=== PATIENT | female | born 1985 | race Caucasian/White ===

== ENCOUNTER 2021-10-08 18:06 | Emergency (ER) | payer OTHER, SELFPAY ==
[2021-10-08 18:17] VITALS: BP 126/63; PULSE 70; RESP 16; TEMP 36.7; O2SAT 97; BMI 18.6
--- NOTE | 2021-10-08 18:25 | DI.US.S_ITS ---
PROCEDURE: US OB <= 14 WEEKS FETUS INDICATIONS: CRAMPING OUTSIDE/PRIOR DATING DATA: Last menstrual period (LMP): 08/31/2021. LMP-based estimated date of delivery ([facility]): 06/07/2022. First dating scan (date and location): 10/08/2021. Estimated date of delivery ([facility]) from first dating scan: 06/05/2022. TECHNIQUE: Real-time scanning was performed of the fetus and maternal pelvic organs, with image documentation. Endovaginal scanning was also performed to better visualize the fetus and maternal ovaries. COMPARISON: None. FINDINGS: Single intrauterine gestational sac is identified in the endometrial cavity without internal contents. No yolk sac or pole. No cardiac motion identified. A gestational sac is slightly irregular, but the main sac diameter of 1.1 cm would correspond with a 5 week 5 day gestation. No evidence of subchorionic bleed. Corpus luteum 2.5 x 1.9 cm cyst noted in the right ovary. Left ovary not visualized. No adnexal mass. IMPRESSION: 1. Intrauterine gestational sac without internal contents. Differential possibilities include normal early , anembryonic , missed and less likely pseudo sac with nonvisualized ectopic . Consider short-term interval follow-up evaluation. Approved by: Robel Meza M.D. on 10/08/2021 at 18:38
[2021-10-08 18:58] LABS: Add Manual Diff / Slide Review NO; Basophils Absolute Auto 0 /uL (0-100); Basophils Percent Auto 0.4 % (0-2); Eosinophils Absolute Auto 200 /uL (0-450); Eosinophils Percent Auto 2.5 % (2-4); Hematocrit 36.6 % (36-46); Hemoglobin 12.3 g/dL (12.0-16.0); Lymphocytes Absolute Auto 1200 /uL (1100-4500); Lymphocytes Percent Auto 18.9 % (25-40); Mean Corpuscular HGB Conc 33.5 % (30-36); Mean Corpuscular Hemoglobin 30.4 PG (26-34); Mean Corpuscular Volume 90.6 fL (80-100); Monocytes Absolute Auto 500 /uL (0-900); Monocytes Percent Auto 7.9 % (3-14); Neutrophils Absolute Auto 4400 /uL (1500-7000); Neutrophils Percent Auto 70.3 % (50-75); Platelet Count 211 X10^3/uL (150-400); Red Blood Cell Count 4.04 X10^6/uL (4.0-5.2); Red Cell Distribution Width 12.1 % (11.6-14.8); White Blood Cell Count 6.3 X10^3/uL (4.5-11.0)
[2021-10-08 19:16] LABS: Alanine Aminotransferase 17 IU/L (<35); Albumin 4.7 g/dL (3.5-5.0); Albumin Globulin Ratio 1.7 (1.0-2.8); Alkaline Phosphatase 40 U/L (38-126); Aspartate Aminotransferase 26 IU/L (14-36); BUN Creatinine Ratio 18.3 (6-22); Bilirubin Total 0.2 mg/dL (0.2-1.3); Blood Urea Nitrogen 11 mg/dL (7-17); Calcium 9.7 mg/dL (8.4-10.2); Carbon Dioxide 23 mmol/L (22-32); Chloride 103 mmol/L (98-107); Estimated Glomerular Filt Rate > 60.0 mL/min (>60); Globulin 2.7 g/dL (1.7-4.1); Glucose 105 mg/dL (70-100); HEMOLYSIS < 15 (0-50); Potassium 4.4 mmol/L (3.4-5.1); Sodium 136 mmol/L (137-145); Total Protein 7.4 g/dL (6.3-8.2)
[2021-10-08 19:57] LABS: HCG Quantitative /Beta subunit 15768 mIU/mL
--- NOTE | 2021-10-08 22:05 | ED.GENADULT ---
HPI - General Adult General Chief complaint: OB/Uterine Contractions Stated complaint: 6Wks Preg, Cramps on Rt Side Time Seen by Provider: 10/08/21 21:49 Mode of arrival: Ambulatory History of Present Illness HPI narrative: 35-year-old at 5 and half weeks planned over the last 48 hours has been having increasing sharp stabbing pain in the right lower quadrant with the right side a bit crampy. Today she was feeling better. [place] on [place] and came in for further evaluation. She reports no fevers, cough, chills, vomiting, diarrhea, headaches, palpitations or chest pain. She is not having any vaginal discharge and no vaginal bleeding Related Data Allergies Allergy/AdvReac Type Severity Reaction Status Date / Time No Known Drug Allergies Allergy Verified 10/08/21 18:28 Review of Systems Review of Systems Narrative: Remainder of complete review of systems is otherwise unremarkable except for that included in the HPI. Patient History Substance Use Type: does not use Exam Narrative Exam Narrative: General: Healthy appearing, in no acute distress. Able to give a complete and coherent history. Well-nourished well-developed HEENT: Moist mucous membranes, normal sclera with reactive pupils, Respiratory: Lungs are clear to auscultation, no wheezing no rales no rhonchi. Full and symmetrical air movement Cardiac: Regular rate and rhythm no murmurs no bruits Abdomen: Soft, nontend abdomen, mild right adnexal tenderness. There is no rebound or guarding. Bowel tones, no flank pain Skin: Warm and dry, no rashes Neurologic: Grossly neurologically intact with no obvious asymmetries or abnormalities Extremities: No trauma, well perfused Psych: Cooperative, appropriate insight and affect Initial Vital Signs Initial Vital Signs: Vital Signs Temperature 98.0 F 10/08/21 18:17 Pulse Rate 70 10/08/21 18:17 Respiratory Rate 16 10/08/21 18:17 Blood Pressure 126/63 10/08/21 18:17 Pulse Oximetry 97 10/08/21 18:17 Course Orders Ordered: ED Orders 10/08/21 18:25 OB <= 14 weeks fetus Stat 10/08/21 18:42 ABO RH Type Stat Complete Blood Count AUTO DIFF Stat Comprehensive Metabolic Panel Stat HCG Quantitative /Beta subunit Stat Vital Signs Vital signs: Vital Signs - 8 hr 10/08/21 18:17 10/08/21 22:34 Temperature 98.0 F Pulse Rate 70 73 Respiratory Rate 16 Blood Pressure 126/63 108/61 Pulse Oximetry 97 100 Medical Decision Making Lab Data Lab results narrative: HCG 15,768 1 -10 WEEKS 44 -256,740 11 -15 WEEKS 11,556 -265,380 Result diagrams: 10/08/21 18:42 10/08/21 18:42 Labs: Lab Results 10/08/21 10/08/21 10/08/21 Range/Units 18:42 18:42 18:42 WBC 6.3 (4.5-11.0) X10^3/uL RBC 4.04 (4.0-5.2) X10^6/uL Hgb 12.3 (12.0-16.0) g/dL Hct 36.6 (36-46) % MCV 90.6 (80-100) fL MCH 30.4 (26-34) PG MCHC 33.5 (30-36) % RDW 12.1 (11.6-14.8) % Plt Count 211 (150-400) X10^3/uL Neut % (Auto) 70.3 (50-75) % Lymph % (Auto) 18.9 L (25-40) % [place] % (Auto) 7.9 (3-14) % Eos % (Auto) 2.5 (2-4) % Baso % (Auto) 0.4 (0-2) % Neut # (Auto) 4400 (3692-3585) /uL Lymph # (Auto) 1200 (3900-5130) /uL [place] # (Auto) 500 (0-900) /uL Eos # (Auto) 200 (0-450) /uL Baso # (Auto) 0 (0-100) /uL Sodium 136 L (137-145) mmol/L Potassium 4.4 (3.4-5.1) mmol/L Chloride 103 (98-107) mmol/L Carbon Dioxide 23 (22-32) mmol/L BUN 11 (7-17) mg/dL Creatinine 0.60 (0.52-1.04) mg/dL Estimated GFR > 60.0 (>60) mL/min BUN/Creatinine Ratio 18.3 (6-22) Glucose 105 H (70-100) mg/dL Calcium 9.7 (8.4-10.2) mg/dL Total Bilirubin 0.2 (0.2-1.3) mg/dL AST 26 (14-36) IU/L ALT 17 (<35) IU/L Alkaline Phosphatase 40 (38-126) U/L Total Protein 7.4 (6.3-8.2) g/dL Albumin 4.7 (3.5-5.0) g/dL Globulin 2.7 (1.7-4.1) g/dL Albumin/Globulin Ratio 1.7 (1.0-2.8) HCG, Quant 21251 mIU/mL Blood Type A Positive Point of Care Testing Test Results Positive Urine Dip Bedside Urine Glucose Negative Bedside Urine Bilirubin - Negative Bedside Urine Ketone - Negative Urine Specific [place] 1.010 Bedside Urine Occult Blood - Negative Bedside Urine pH 7.5 Bedside Urine Protein - Negative Bedside Urine Urobilinogen - Negative Bedside Urine Nitrite - Negative Bedside Urine Leukocytes - Negative Esterase Point of care testing: Point of Care Testing Test Results Positive Urine Dip Bedside Urine Glucose Negative Bedside Urine Bilirubin - Negative Bedside Urine Ketone - Negative Urine Specific [place] 1.010 Bedside Urine Occult Blood - Negative Bedside Urine pH 7.5 Bedside Urine Protein - Negative Bedside Urine Urobilinogen - Negative Bedside Urine Nitrite - Negative Bedside Urine Leukocytes - Negative Esterase Imaging Data us pelvis: Radiologist's Impression: TECHNIQUE:? Real-time scanning was performed of the fetus and maternal pelvic organs, with image documentation.? Endovaginal scanning was also performed to better visualize the fetus and maternal ovaries.? ? COMPARISON:? None. ? FINDINGS:? ? Single intrauterine gestational sac is identified in the endometrial cavity without internal contents.? No yolk sac or pole.? No cardiac motion identified.? A gestational sac is slightly irregular, but the main sac diameter of 1.1 cm would correspond with a 5 week 5 day gestation.? No evidence of subchorionic bleed. ? Corpus luteum 2.5 x 1.9 cm cyst noted in the right ovary.? Left ovary not visualized.? No adnexal mass. ? IMPRESSION: ? 1. Intrauterine gestational sac without internal contents.? Differential possibilities include normal early , anembryonic , missed and less likely pseudo sac with nonvisualized ectopic .? Consider short-term interval follow-up evaluation. ? ? ? Approved by: Robel Meza M.D. on 10/08/2021 at 18:38? MDM Narrative Medical decision making narrative: 35-year-old at 5 weeks 5 days by LMP with an anticipated . Right-sided adnexal pain with sharp stabbing pain no associated bleeding or vaginal discharge. No fevers. Ultrasound shows no pole with sac appreciated in the a uterus. No obvious adnexal masses. However hCG is significantly more elevated than and 1 would expect at 5 weeks 5 days. Concerned that this may be a decidual reaction she may have an ectopic that we have not been able to clearly see. Reviewed all of these findings with her. Will have her follow-up with OBGYN on Monday. Clearly reviewed findings, reasons to return as well as expectations. Questions answered she is safe for home discharge Discharge Plan Departure Patient Disposition: Home Clinical Impression: Early stage of , Pelvic pain Instructions: DI for Miscarriage Activity Restrictions/Additional Instructions: Thank you for coming in today With the initial evaluation I am not seeing any obvious evidence for an ectopic . Your hormone is fairly elevated, closer to tender 11 weeks of than 5. Your ultrasound suggests 5 and half week gestational sac that is forming in your uterus however we do not yet see pole, the actual baby itself. At this time, all of those data points are not adding up the way that they should and it leaves is within inconclusive answer. There is no life-threatening finding tonight and it is safe to go home however you will need to follow-up. On Monday morning please call [facility] at [phone] Allen who is the OBGYN who will be on-call on Monday. She will help you decide if you need blood work and a repeat ultrasound or just blood work. In the meantime, if you have worsening pain developed vaginal bleeding or new symptoms please feel free to return to the ER I wish you the very best Your blood type is A positive
[2021-10-08 22:34] VITALS: BP 108/61; PULSE 73; O2SAT 100
== END 2021-10-08 22:36 | disposition home or self-care (01) ==
PROVIDERS: Emergency Provider Emergency Medicine
DX: O26.891 Other specified pregnancy related conditions, first trimester (principal); R10.2 Pelvic and perineal pain; Z3A.01 Less than 8 weeks gestation of pregnancy
CPT/HCPCS: 36415; 76801; 76817; 80053; 81003; 81025; 84702; 85025; 86900; 86901; 99284

== ENCOUNTER → 2021-10-11 10:44 | Outpatient (CLI) | payer OTHER, SELFPAY ==
[2021-10-11 13:56] LABS: HCG Quantitative /Beta subunit 32359 mIU/mL
== END ==
PROVIDERS: Referring Provider Obstetrics & Gynecology; Visit Provider Obstetrics & Gynecology
DX: O26.899 Other specified pregnancy related conditions, unspecified trimester (principal); R10.9 Unspecified abdominal pain
CPT/HCPCS: 36415; 84702

== ENCOUNTER → 2022-06-04 10:58 | Outpatient (CLI) | payer OTHER, SELFPAY ==
[2022-06-04 11:31] LABS: Add Manual Diff / Slide Review NO; Basophils Absolute Auto 0 /uL (0-100); Basophils Percent Auto 1.2 % (0-2); Eosinophils Absolute Auto 200 /uL (0-450); Hematocrit 33.3 % (36-46); Hemoglobin 11.5 g/dL (12.0-16.0); Lymphocytes Absolute Auto 1000 /uL (1100-4500); Lymphocytes Percent Auto 29.9 % (25-40); Mean Corpuscular HGB Conc 34.5 % (30-36); Mean Corpuscular Hemoglobin 31.5 PG (26-34); Mean Corpuscular Volume 91.2 fL (80-100); Monocytes Absolute Auto 300 /uL (0-900); Monocytes Percent Auto 9.4 % (3-14); Neutrophils Absolute Auto 1800 /uL (1500-7000); Neutrophils Percent Auto 53.5 % (50-75); Platelet Count 165 X10^3/uL (150-400); Red Blood Cell Count 3.65 X10^6/uL (4.0-5.2); Red Cell Distribution Width 12.7 % (11.6-14.8); White Blood Cell Count 3.4 X10^3/uL (4.5-11.0)
[2022-06-04 11:37] LABS: Hemoglobin A1C% w Est Avg Glu 4.8 % (4.0-6.0)
[2022-06-04 11:52] LABS: Alanine Aminotransferase 16 IU/L (<35); Albumin 4.4 g/dL (3.5-5.0); Albumin Globulin Ratio 1.9 (1.0-2.8); Alkaline Phosphatase 40 U/L (38-126); Aspartate Aminotransferase 26 IU/L (14-36); BUN Creatinine Ratio 13.9 (6-22); Bilirubin Total 0.6 mg/dL (0.2-1.3); Blood Urea Nitrogen 10 mg/dL (7-17); Calcium 9.1 mg/dL (8.4-10.2); Carbon Dioxide 25 mmol/L (22-32); Chloride 104 mmol/L (98-107); Cholesterol 164 mg/dL (140-199); Estimated Glomerular Filt Rate > 60 mL/min (>60); Globulin 2.3 g/dL (1.7-4.1); Glucose 90 mg/dL (70-100); HDL Cholesterol 59 mg/dL (40-60); HEMOLYSIS 22 (0-50); Iron 64 ug/dL (37-170); LDL Cholesterol Calculated 97 mg/dL (<100); Potassium 4.3 mmol/L (3.4-5.1); Sodium 139 mmol/L (137-145); Total Protein 6.7 g/dL (6.3-8.2); Triglycerides 41 mg/dL (35-150)
[2022-06-04 12:01] LABS: HEMOLYSIS 128 (0-50)
[2022-06-04 12:03] LABS: Percent Iron Saturation 21 % (15-50); Total Iron Binding Capacity 298 ug/dL (265-497); Transferrin 247 mg/dL (206-381)
[2022-06-04 12:09] LABS: Prolactin 7.5 ng/mL (3.0-18.6); Vitamin D 25 Hydroxy (D3) 112 ng/mL (30.0-100.0)
[2022-06-04 12:10] LABS: Follicle Stimulating Hormone 5.45 mIU/mL; Free T3, Triiodothyronine Free 3.59 pg/mL (2.77-5.27); Free T4, Direct Thyroxine 1.27 ng/dL (0.78-2.19); Luteinizing Hormone 3.98 mIU/mL
[2022-06-04 12:24] LABS: Thyroid Stimulating Hormone 1.49 uIU/mL (0.47-4.68)
[2022-06-04 12:25] LABS: Estradiol, Total 24.3 pg/mL
[2022-06-04 12:27] LABS: Ferritin 29 ng/mL (6-137)
[2022-06-04 12:58] LABS: Folate > 20.0 ng/mL (2.76-20.0); Vitamin B12 > 1000 pg/mL (239-931)
[2022-06-05 09:34] LABS: Thyroid Peroxidase Antibodies 28 IU/mL (0-34); Triiodothyronine T3 Total 94 ng/dL (71-180)
[2022-06-07 19:31] LABS: Anti Thyroglobulin Antibody 12.3 IU/mL (0.0-0.9)
[2022-06-11 09:15] LABS: Anti Mullerian Hormone 4.13 ng/mL (.)
== END ==
DX: Z00.00 Encounter for general adult medical examination without abnormal findings (principal); N94.89 Other specified conditions associated with female genital organs and menstrual cycle; N92.6 Irregular menstruation, unspecified; Z13.29 Encounter for screening for other suspected endocrine disorder
CPT/HCPCS: 36415; 80053; 80061; 82306; 82397; 82607; 82670; 82728; 82746; 83001; 83002; 83036; 83090; 83540; 83550; 84146; 84439; 84443; 84480; 84481; 85025; 86376; 86800

== ENCOUNTER → 2022-06-24 15:51 | Outpatient (CLI) | payer OTHER, SELFPAY ==
[2022-06-24 17:42] LABS: Free T3, Triiodothyronine Free 3.59 pg/mL (2.77-5.27); Free T4, Direct Thyroxine 1.31 ng/dL (0.78-2.19)
[2022-06-24 18:01] LABS: Progesterone, Total 9.46 ng/mL
[2022-06-25 05:38] LABS: Thyroid Peroxidase Antibodies 28 IU/mL (0-34)
[2022-06-28 20:40] LABS: Anti Thyroglobulin Antibody 11.6 IU/mL (0.0-0.9)
[2022-06-29 20:42] LABS: Estrogen 177 pg/mL (.)
[2022-07-04 11:27] LABS: Percent Free Testosterone 0.98 % (0.50-2.80); Testosterone Free 0.12 ng/dL (0.10-0.85); Testosterone Total 12.6 ng/dL (10.0-55.0)
== END ==
PROVIDERS: Acupuncturist
DX: E06.3 Autoimmune thyroiditis (principal); N94.89 Other specified conditions associated with female genital organs and menstrual cycle; N92.6 Irregular menstruation, unspecified; Z13.29 Encounter for screening for other suspected endocrine disorder
CPT/HCPCS: 36415; 82627; 82672; 84144; 84270; 84402; 84403; 84432; 84439; 84443; 84481; 86376; 86800

== ENCOUNTER → 2022-10-21 10:51 | Outpatient (CLI) | payer OTHER, SELFPAY ==
[2022-10-21 11:55] LABS: Add Manual Diff / Slide Review NO; Basophils Absolute Auto 0 /uL (0-100); Basophils Percent Auto 0.8 % (0-2); Eosinophils Absolute Auto 100 /uL (0-450); Eosinophils Percent Auto 3.2 % (2-4); Hemoglobin 12.9 g/dL (12.0-16.0); Lymphocytes Absolute Auto 1000 /uL (1100-4500); Lymphocytes Percent Auto 24.4 % (25-40); Mean Corpuscular HGB Conc 33.8 % (30-36); Mean Corpuscular Hemoglobin 30.4 PG (26-34); Mean Corpuscular Volume 89.9 fL (80-100); Monocytes Absolute Auto 400 /uL (0-900); Monocytes Percent Auto 9.2 % (3-14); Neutrophils Absolute Auto 2600 /uL (1500-7000); Neutrophils Percent Auto 62.4 % (50-75); Platelet Count 210 X10^3/uL (150-400); Red Blood Cell Count 4.23 X10^6/uL (4.0-5.2); Red Cell Distribution Width 12.7 % (11.6-14.8); White Blood Cell Count 4.2 X10^3/uL (4.5-11.0)
[2022-10-21 12:37] LABS: Iron 87 ug/dL (37-170)
[2022-10-21 12:46] LABS: Total Iron Binding Capacity 315 ug/dL (265-497)
[2022-10-21 12:56] LABS: Free T3, Triiodothyronine Free 3.33 pg/mL (2.77-5.27); Free T4, Direct Thyroxine 1.47 ng/dL (0.78-2.19)
[2022-10-21 13:09] LABS: Estradiol, Total 23.7 pg/mL; Thyroid Stimulating Hormone 1.63 uIU/mL (0.47-4.68)
[2022-10-21 13:16] LABS: Ferritin 36 ng/mL (6-137)
[2022-10-22 09:09] LABS: Thyroid Peroxidase Antibodies 20 IU/mL (0-34); Triiodothyronine T3 Total 92 ng/dL (71-180)
[2022-10-22 20:36] LABS: Anti Thyroglobulin Antibody <1.0 IU/mL (0.0-0.9)
[2022-10-28 11:52] LABS: Anti Mullerian Hormone 4.25 ng/mL (.)
== END ==
PROVIDERS: PCP Acupuncturist; Referring Provider Acupuncturist; Visit Provider Acupuncturist
DX: E06.3 Autoimmune thyroiditis (principal); D50.9 Iron deficiency anemia, unspecified; N94.89 Other specified conditions associated with female genital organs and menstrual cycle
CPT/HCPCS: 36415; 82397; 82670; 82728; 83540; 83550; 84439; 84443; 84480; 84481; 85025; 86376; 86800

== ENCOUNTER → 2022-11-11 10:37 | Outpatient (CLI) | payer OTHER, SELFPAY | PROVIDERS: PCP Acupuncturist; Referring Provider Acupuncturist; Visit Provider Acupuncturist | DX: N94.89 Other specified conditions associated with female genital organs and menstrual cycle (principal) | CPT/HCPCS: 36415; 84144 ==

== ENCOUNTER → 2022-11-17 17:34 | Outpatient (CLI) | payer OTHER, SELFPAY ==
[2022-11-17 19:09] LABS: HCG Quantitative /Beta subunit 176.9 mIU/mL
== END ==
PROVIDERS: PCP Acupuncturist; Referring Provider Acupuncturist; Visit Provider Acupuncturist
DX: Z32.00 Encounter for pregnancy test, result unknown (principal)
CPT/HCPCS: 36415; 84144; 84702

== ENCOUNTER → 2022-11-21 11:29 | Outpatient (CLI) | payer OTHER, SELFPAY ==
[2022-11-21 13:01] LABS: HCG Quantitative /Beta subunit 1189.8 mIU/mL
== END ==
PROVIDERS: PCP Acupuncturist; Referring Provider Acupuncturist; Visit Provider Acupuncturist
DX: Z32.00 Encounter for pregnancy test, result unknown (principal)
CPT/HCPCS: 36415; 84144; 84702

== ENCOUNTER → 2022-11-23 16:29 | Outpatient (CLI) | payer OTHER, SELFPAY ==
[2022-11-23 18:50] LABS: HCG Quantitative /Beta subunit 3147.3 mIU/mL
== END ==
PROVIDERS: PCP Acupuncturist; Referring Provider Acupuncturist; Visit Provider Acupuncturist
DX: Z32.00 Encounter for pregnancy test, result unknown (principal)
CPT/HCPCS: 36415; 84144; 84702

== ENCOUNTER → 2022-12-01 09:03 | Outpatient (CLI) | payer OTHER, SELFPAY ==
[2022-12-01 10:39] LABS: Free T3, Triiodothyronine Free 3.73 pg/mL (2.77-5.27); Free T4, Direct Thyroxine 1.41 ng/dL (0.78-2.19)
[2022-12-01 11:05] LABS: HCG Quantitative /Beta subunit 45058 mIU/mL
[2022-12-03 07:35] LABS: Triiodothyronine T3 Total 100 ng/dL (71-180)
[2022-12-04 07:33] LABS: Thyroid Peroxidase Antibodies 17 IU/mL (0-34)
[2022-12-07 12:20] LABS: Anti Thyroglobulin Antibody <1.0 IU/mL (0.0-0.9)
== END ==
PROVIDERS: PCP Acupuncturist; Referring Provider Acupuncturist; Visit Provider Acupuncturist
DX: E06.3 Autoimmune thyroiditis (principal); Z32.00 Encounter for pregnancy test, result unknown
CPT/HCPCS: 36415; 84144; 84439; 84443; 84480; 84481; 84702; 86376; 86800

== ENCOUNTER → 2025-03-08 08:45 | Outpatient (CLI) | payer OTHER, SELFPAY ==
[2025-03-08 10:52] LABS: HCG Quantitative /Beta subunit 42175 mIU/mL
== END ==
LOC: LAB 08:48
PROVIDERS: PCP Acupuncturist
DX: O09.91 Supervision of high risk pregnancy, unspecified, first trimester (principal)
CPT/HCPCS: 36415; 84702